=== PATIENT | male | born 1980 | race American Indian/Alaskan Native ===

== ENCOUNTER 2021-03-22 11:01 | Emergency (ER) | payer SELFPAY ==
[2021-03-22] MEDS ORDERED: LIDOCAINE-MPF (1%) 10 MG/1 ML VIAL 5 ML INFILTRATI ONE (13:48)
[2021-03-22] MEDS ORDERED: dexAMETHasone 4 MG/ML VIAL IM STA (13:48)
--- NOTE | 2021-03-22 14:09 | Emergency Department Report ---
ED General Adult HPI - General Chief complaint: Sore Throat Stated complaint: PAIN THROAT,EAR HARD TO SWALLOW Time Seen by Provider: 03/22/21 13:47 Source: patient Mode of arrival: Ambulatory Limitations: No Limitations - History of Present Illness Initial comments: Patient complains of right-sided pain in his throat x2 days. Pain worsens with swallowing and radiates to his right ear. He denies any fever/chills/sweats, difficulty opening his jaw, cough, chest pain, or skin changes. He rates his current pain as a 8/10 in severity. He states ibuprofen does to control the pain. No recent known sick contacts per patient. - Related Data Previous Rx's Medication Instructions Recorded Last Taken Type Clindamycin [Clindamycin CAP] 300 mg PO Q6H 10 Days #40 capsule 03/22/21 Unknown Rx predniSONE [Deltasone] 20 mg PO QDAY #3 tab 03/22/21 Unknown Rx Allergies Allergy/AdvReac Type Severity Reaction Status Date / Time No Known Allergies Allergy Unverified 03/22/21 13:26 ED Review of Systems ROS: Stated complaint: PAIN THROAT,EAR HARD TO SWALLOW Other details as noted in HPI Constitutional: denies: chills, fever, malaise ENT: throat pain Respiratory: denies: cough, shortness of breath Cardiovascular: chest pain Skin: denies: rash Hematological/Lymphatic: swollen glands ED Past Medical Hx - Past Medical History Previous Medical History?: No - Surgical History Additional Surgical History: HERNIA - Medications Home Medications: Home Medications Medication Instructions Recorded Confirmed Last Taken Type Clindamycin [Clindamycin CAP] 300 mg PO Q6H 10 Days #40 capsule 03/22/21 Unknown Rx predniSONE [Deltasone] 20 mg PO QDAY #3 tab 03/22/21 Unknown Rx ED Physical Exam - General Limitations: No Limitations General appearance: alert, in no apparent distress - Head Head exam: Present: atraumatic, normocephalic - Eye Eye exam: Present: normal appearance - ENT ENT exam: Present: TM's normal bilaterally - Expanded ENT Exam Expanded Throat exam: Positive: tonsillar erythema (Right-sided), tonsillomegaly (Right- sided), other (Appears to be midline at this time) - Neck Neck exam: Present: full ROM, lymphadenopathy (Right submandibular) - Respiratory Respiratory exam: Present: normal lung sounds bilaterally. Absent: respiratory distress - Cardiovascular Cardiovascular Exam: Present: regular rate, normal rhythm - Neurological Exam Neurological exam: Present: alert, oriented X3 - Psychiatric Psychiatric exam: Present: normal affect, normal mood - Skin Skin exam: Present: warm, dry, intact, normal color. Absent: rash ED Course Vital Signs 03/22/21 03/22/21 13:28 14:31 Temperature 98.1 F Pulse Rate 65 66 Respiratory 20 18 Rate Blood Pressure 119/83 Blood Pressure 118/80 [Left] O2 Sat by Pulse 97 97 Oximetry ED Medical Decision Making - Medical Decision Making Patient complains of right-sided pain in his throat x2 days. Pain worsens with swallowing and radiates to his right ear. He denies any fever/chills/sweats, difficulty opening his jaw, cough, chest pain, or skin changes. He rates his current pain as a 8/10 in severity. He states ibuprofen does to control the pain. No recent known sick contacts per patient. Tonsillitis and peritonsillar erythema and swelling noted on exam without obvious abscess. Will treat with clindamycin and close monitoring. Patient to follow-up with primary care or ENT within 2 days for recheck. Discussed presumptive diagnosis, treatment plan, and signs and symptoms that should prompt immediate return to the emergency department in great detail with patient who verbalizes understanding. His vitals are normal, he is well-appearing, he is stable for discharge home. No trismus or drooling is noted on exam Critical care attestation.: If time is entered above; I have spent that time in minutes in the direct care of this critically ill patient, excluding procedure time. ED Disposition Clinical Impression: Acute tonsillitis Disposition: HOME / SELF CARE / HOMELESS Is pt being admited?: No Condition: Stable Instructions: Tonsillitis Prescriptions: Clindamycin [Clindamycin CAP] 300 mg PO Q6H 10 Days #40 capsule predniSONE [Deltasone] 20 mg PO QDAY #3 tab Referrals: ANDREZ HAN MD [Staff Physician] - 3-5 Days Forms: Work/School Release Form(ED)
[2021-03-22 14:32] VITALS: BP 118/80
== END 2021-03-22 14:33 | disposition home or self-care (01) ==
LOC: ED 11:01
DX: J03.90 Acute tonsillitis, unspecified (principal); H92.01 Otalgia, right ear; Z79.899 Other long term (current) drug therapy
CPT/HCPCS: 96372; 99281; J1100